=== PATIENT | male | born 1955 | race Caucasian/White ===

== ENCOUNTER 2019-06-08 12:02 | Emergency (ER) | payer OTHER ==
--- NOTE | 2019-06-08 12:20 | ER Document Report ---
HPI - HPI Patient complains to provider of: staple removal Time Seen by Provider: 06/08/19 12:17 Onset: Other - 05/28/19 Onset/Duration: Better Quality of pain: No pain Pain Level: 3 Context: Patient presents for staple removal. Patient states that he was walking tripped and fell hitting his head on a post back on 05/28/2019. [place] and had 6 len placed to the scalp. Patient denies any problems with the injury. Associated Symptoms: None Exacerbated by: Denies Relieved by: Denies Similar symptoms previously: No Recently seen / treated by doctor: Yes - ROS ROS below otherwise negative: Yes Systems Reviewed and Negative: Yes All other systems reviewed and negative - CONSTITUTIONAL Constitutional: DENIES: Fever, Chills - GASTROINTESTINAL Gastrointestinal: DENIES: Nausea, Patient vomiting - MUSCULOSKELETAL Musculoskeletal: DENIES: Neck Pain - DERM Skin Color: Normal Skin Problems: Laceration - Stapled laceration to right side of scalp Past Medical History - General Information source: Patient - Social History Smoking Status: Never Smoker Frequency of alcohol use: None Drug Abuse: None Family History: Reviewed & Not Pertinent Patient has suicidal ideation: No Patient has homicidal ideation: No - Past Medical History Cardiac Medical History: Reports: Hx Hypertension Neurological Medical History: Reports: Hx Cerebrovascular Accident Surgical Hx: Negative Vertical Provider Document - CONSTITUTIONAL Exam Limitations: No Limitations General Appearance: WD/WN, No Apparent Distress - INFECTION CONTROL TRAVEL OUTSIDE OF THE [place] IN LAST 30 DAYS: No - HEENT HEENT: Normocephalic Notes: Patient with stable and laceration to right parietal scalp, 6 intact len, wound edges approximated, no erythema or purulent drainage. - NECK Neck: Normal Inspection, Supple - RESPIRATORY Respiratory: No Respiratory Distress - BACK Back: Normal Inspection - MUSCULOSKELETAL/EXTREMETIES Musculoskeletal/Extremeties: MAEW - NEURO Level of Consciousness: Awake, Alert, Appropriate Motor/Sensory: No Motor Deficit - DERM Integumentary: Warm, Dry, Laceration - Stapled 7 cm laceration to right parietal scalp with 6 intact sutures, wound edges approximated Discharge - Discharge Clinical Impression: Removal of len Condition: Stable Disposition: HOME, SELF-CARE Instructions: Staple Removal ([facility]) Additional Instructions: Return as needed for any new or worsening symptoms Referrals: [facility] [Provider Group] - Follow up as needed
[2019-06-08 12:27] VITALS: BP 113/63
== END 2019-06-08 12:31 | disposition home or self-care (01) ==
LOC: ER 12:02
DX: S01.01XD Laceration without foreign body of scalp, subsequent encounter (principal); W19.XXXD Unspecified fall, subsequent encounter; W22.8XXD Striking against or struck by other objects, subsequent encounter; I10 Essential (primary) hypertension
CPT/HCPCS: 99281